=== PATIENT | female | born 1940 | race Caucasian/White ===

== ENCOUNTER 2017-05-29 16:15 | Observation (INO) | payer MEDICARE, OTHER ==
[2017-05-29] MEDS ORDERED: Meclizine 12.5 MG Tab PO ONE ×2 (16:47→17:50)
[2017-05-29] MEDS ORDERED: Ondansetron 4 MG Tab.DIS PO ONE ×2 (16:47→17:54)
--- NOTE | 2017-05-29 16:55 | EDM.PDOC ---
ED HPI GENERAL MEDICAL PROBLEM - General Chief Complaint: Neuro Symptoms/Deficits Stated Complaint: DIZZNESS Time Seen by Provider: 05/29/17 16:40 Source of Information: Reports: Patient History Limitations: Reports: No Limitations - History of Present Illness INITIAL COMMENTS - FREE TEXT/NARRATIVE: 76 yo female was visiting her today in a local [facility] and became abruptly vertiginous. She had nausea without vomiting. No sweating. Is still feeling dizzy now, but not bad as long as she remains still. She denies any numbness or weakness of one side of her body. No slurred speech. Her is in a [facility] due to a stroke and she is afraid of ending up like him. Onset: Today Onset Date: 05/29/17 Onset Time: 16:00 Duration: Minutes:, Waxing/Waning Location: Reports: Head Quality: Reports: Other (spinning) Severity: Mild (now, was worse earlier.) Improves with: Reports: Other (keeping head still) Worsens with: Reports: Movement Context: Reports: Other (Hx of the same requiring hospitalization. ) Associated Symptoms: Reports: Nausea/Vomiting (no vomiting.). Denies: Fever/ Chills, Headaches Treatments BULB SORTER: Reports: Other (see below) (none) - Related Data Allergies Allergy/AdvReac Type Severity Reaction Status Date / Time propoxyphene HCl AdvReac Mild Nausea Verified 05/29/17 17:12 [From Gamaliel] Home Meds: Home Meds Acetaminophen [Acetaminophen Extra Strength] 1,000 mg PO BEDTIME 01/06/13 [ History] Albuterol [Ventolin HFA] 2 puff INH Q4H PRN 01/06/13 [History] Calcium Carbonate/Vitamin D3 [Calcium 600 + Vit D Tablet] 1 each PO DAILY [History] Carvedilol [Coreg] 6.25 mg PO BID 01/06/13 [History] Cholecalciferol (Vitamin D3) [Vitamin D3] 1,000 units PO DAILY 01/06/13 [History ] Citalopram Hydrobromide [Celexa] 20 mg PO DAILY 01/06/13 [History] Multivitamin [Daily Vitamin] 1 each PO DAILY 01/06/13 [History] Simvastatin [Zocor] 40 mg PO BEDTIME 01/06/13 [History] Symbicort 2 puff INH BID 01/06/13 [History] Losartan/Hydrochlorothiazide [Hyzaar 100-12.5 Tablet] 1 each PO DAILY #90 tablet 01/17/13 [Rx] Phenazopyridine HCl [Pyridium] 200 mg PO TID #9 tablet 03/04/16 [Rx] Meclizine [Antivert] 12.5 - 25 mg PO TID PRN #30 tab 05/29/17 [Rx] Ondansetron [Zofran ODT] 4 mg PO Q6H PRN #7 tab.dis 05/29/17 [Rx] Social & Family History - Tobacco Use Smoking Status *Q: Never Smoker Years of Tobacco use: 10 Used Tobacco, but Quit: Yes Month Tobacco Last Used: 1978 Second Hand Smoke Exposure: No - Caffeine Use Caffeine Use: Reports: Coffee - Alcohol Use Days Per Week of Alcohol Use: 0 - Recreational Drug Use Recreational Drug Use: No ED ROS GENERAL - Review of Systems Review Of Systems: See Below Constitutional: Reports: No Symptoms HEENT: Reports: No Symptoms Respiratory: Reports: No Symptoms Cardiovascular: Reports: No Symptoms Endocrine: Reports: No Symptoms GI/Abdominal: Reports: Nausea. Denies: Anorexia, Black Stool, Bloody Stool, Constipation, Diarrhea, Hematemesis, Hematochezia, Vomiting : Reports: No Symptoms Musculoskeletal: Reports: No Symptoms Skin: Reports: No Symptoms Neurological: Reports: Dizziness, Difficulty Walking, Gait Disturbance Psychiatric: Reports: No Symptoms ED EXAM, DIZZINESS - Physical Exam Exam: See Below Exam Limited By: No Limitations General Appearance: Alert, WD/WN, No Apparent Distress Eye Exam: Bilateral Eye: EOMI (No visible nystagmus at this time.), Normal Inspection, PERRL Nystagmus: No: worsens with head to L, worsens with head to R, constant Ears: Normal External Exam, Normal Canal, Hearing Grossly Normal, Normal TMs Nose: Normal Inspection, Normal Mucosa, No Blood Throat/Mouth: Normal Inspection, Normal Lips, Normal Oropharynx, Normal Voice, No Airway Compromise Head Exam: Atraumatic, Normocephalic Neck: Normal Inspection, Supple, Non-Tender Respiratory/Chest: No Respiratory Distress, Lungs Clear, Normal Breath Sounds, No Accessory Muscle Use Cardiovascular: Regular Rate, Rhythm, No Edema GI/Abdominal: Normal Bowel Sounds, Soft, Non-Tender, No Distention Neurological: Alert, Normal Mood/Affect, CN II-XII Intact, No Motor/Sensory Deficits, Oriented x 3. No: Abnormal Light Touch Back Exam: Normal Inspection Extremities: Normal Inspection, Normal Range of Motion, Non-Tender, No Pedal Edema Psychiatric: Normal Affect, Normal Mood Skin Exam: Warm, Dry, Intact, Normal Color, No Rash Course - Vital Signs Text/Narrative:: Feeling better after Zofran and Meclizine. Able to walk the ER halls without sx' s. Last Recorded V/S: Last Vital Signs Temp 36.4 C 05/29/17 17:14 Pulse 69 05/29/17 17:14 Resp 16 05/29/17 17:14 BP 165/83 H 05/29/17 17:14 Pulse Ox 95 05/29/17 17:14 - Orders/Labs/Meds Labs: Laboratory Tests 05/29/17 Range/Units 17:07 Sodium 141 (135-145) mmol/L Potassium 4.1 (3.5-5.3) mmol/L Chloride 103 (100-110) mmol/L Carbon Dioxide 31 (21-32) mmol/L BUN 22 H (7-18) mg/dL Creatinine 1.0 (0.55-1.02) mg/dL Est Cr Clr Drug Dosing TNP Estimated GFR (MDRD) 54 L (>60) BUN/Creatinine Ratio 22.0 H (9-20) Glucose 114 (80-116) mg/dL Calcium 9.4 (8.6-10.2) mg/dL Meds: Medications Discontinued Medications Generic Name Dose Route Start Last Admin Trade Name Eribertoq PRN Reason Stop Dose Admin Aspirin 324 mg 05/29/17 17:04 05/29/17 17:07 Aspirin PO 05/29/17 17:05 324 mg ONETIME ONE Administration Meclizine HCl 12.5 mg 05/29/17 16:47 05/29/17 17:04 Antivert PO 05/29/17 16:48 12.5 mg ONETIME ONE Administration Ondansetron HCl 4 mg 05/29/17 16:47 05/29/17 16:56 Zofran Odt PO 05/29/17 16:48 4 mg ONETIME ONE Administration Departure - Departure Time of Disposition: 17:46 Disposition: Home, Self-Care 01 Condition: Good Clinical Impression: BPV (benign positional vertigo) Qualifiers: Laterality: unspecified laterality Qualified Code(s): H81.10 - Benign paroxysmal vertigo, unspecified ear HTN (hypertension) Qualifiers: Hypertension type: unspecified Qualified Code(s): I10 - Essential (primary) hypertension - Discharge Information Prescriptions: Meclizine [Antivert] 12.5 - 25 mg PO TID PRN #30 tab PRN Reason: Dizziness Ondansetron [Zofran ODT] 4 mg PO Q6H PRN #7 tab.dis PRN Reason: Nausea Referrals: Ag Garsia MD [Primary Care Provider] - Forms: ED Department Discharge Additional Instructions: Take meclizine as directed for vertigo symptoms. Take Zofran ODT as directed for nausea control. Recheck as needed.
[2017-05-29] MEDS ORDERED: Aspirin 81 MG Tab.Chew PO ONE (17:04)
[2017-05-29] MEDS ORDERED: Meclizine 25 MG Tab PO ONE (17:59)
[2017-05-29] MEDS ORDERED: Albuterol 8 GM Inhaler INH PRN (18:05)
[2017-05-29] MEDS: Lactated Ringers 1,000 ML IV SCH (19:39)
[2017-05-29] MEDS: Promethazine 6.25 MG in Sodium Chloride 0.9% 50 ML IV PRN (19:44)
[2017-05-29] MEDS ORDERED: Acetaminophen 500 MG Tab PO SCH (21:00)
[2017-05-29] MEDS: CARVEDILOL 6.25 MG PO SCH (21:59)
[2017-05-29] MEDS: SYMBICORT INH SCH (22:03)
[2017-05-30] MEDS: Lactated Ringers 1,000 ML IV SCH ×2 (05:50→16:09)
[2017-05-30] MEDS: Promethazine 6.25 MG in Sodium Chloride 0.9% 50 ML IV PRN (05:54)
[2017-05-30] MEDS: SYMBICORT INH SCH ×2 (06:53→20:38)
[2017-05-30] MEDS ORDERED: LOSARTAN PO SCH (09:00)
[2017-05-30] MEDS ORDERED: HYDROCHLOROTHIAZIDE PO SCH (09:00)
[2017-05-30] MEDS: CARVEDILOL 6.25 MG PO SCH ×2 (10:07→20:39)
[2017-05-30] MEDS: Citalopram 20 MG Tab *PTOM PO SCH (10:07)
[2017-05-30] MEDS: HYDROCHLOROTHIAZIDE PO SCH (10:07)
[2017-05-30] MEDS: LOSARTAN PO SCH (10:07)
--- NOTE | 2017-05-30 11:51 | PCM.HP ---
H&P History of Present Illness - General Date of Service: 05/30/17 Admit Problem/Dx: Admission Diagnosis/Problem Admission Diagnosis/Problem Dizziness - History of Present Illness Initial Comments - Free Text/Narative: Patient is a pleasant 76-year-old female who had sudden onset of dizziness described as "room was spinning ". She was at work at the home when she was about to leave for the day. She sat down close her eyes but did not resolve. She also had nausea. 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 Therefore occurs at work brought her to the hospital. On presentation she continue to have vertiginous symptoms that resolved with meclizine. She had nausea and about of vomiting as well while in the ER. She did feel better and was able to ambulate, but because of the continued nausea she was admitted overnight for observation. Tells me she had this about 13 years ago and was on meclizine at that time as well. Son has as well which he discovered after having gone to a 3D movie. Has not been undergoing any physical therapy or occupational therapy such as Diogenes- Hallpike maneuvers. No history of inner ear surgery. She's had no prior strokes , TIAs, cardiovascular surgery or new diagnoses. She's not had fevers or chills no sweats or vomiting prior to this. She denies any conjunctivitis change in her vision other than the above. She has not had any recent change in prescription glasses. She denies any Apollo neck shoulder back pain. No chest pain or pressure. Denies palpitations. Denies worsening of symptoms with sitting or standing. Denies any decreased in oral intake or urine output. Denies any diarrhea abdominal pain hematuria or dysuria. Denies any flank pain. Denies any sudden onset of peripheral edema. No sudden onset of joint swelling tenderness or warmth. Denies any rash. Denies any confusion memory deficit speech deficit difficulty chewing or swallowing. Independent of all ADLs. No recent hospitalizations, no contacts, immunizations, travel outside the [place], prolonged road trip, new medication prescriptions or OTC. Denies any epistaxis, tinnitus, otalgia, coordination deficit, unusual bruising, vaginal bleeding, melena or hematochezia. - Related Data Allergies/Adverse Reactions: Allergies Allergy/AdvReac Type Severity Reaction Status Date / Time propoxyphene HCl AdvReac Mild Nausea Verified 05/29/17 18:09 [From Darvon] Home Medications: Home Meds Albuterol [Ventolin HFA] 2 puff INH Q4H PRN 01/06/13 [History] Calcium Carbonate/Vitamin D3 [Calcium 600 + Vit D Tablet] 1 each PO BID [History] Carvedilol [Coreg] 6.25 mg PO BID 01/06/13 [History] Cholecalciferol (Vitamin D3) [Vitamin D3] 1,000 units PO DAILY 01/06/13 [History ] Citalopram Hydrobromide [Celexa] 20 mg PO DAILY 01/06/13 [History] Multivitamin [Daily Vitamin] 1 each PO DAILY 01/06/13 [History] Simvastatin [Zocor] 40 mg PO BEDTIME 01/06/13 [History] Meclizine [Antivert] 12.5 - 25 mg PO TID PRN #30 tab 05/29/17 [Rx] Ondansetron [Zofran ODT] 4 mg PO Q6H PRN #7 tab.dis 05/29/17 [Rx] Acetaminophen [Tylenol Arthritis] 1,300 mg PO BEDTIME 05/30/17 [History] Aspirin [Halfprin] 81 mg PO BEDTIME 05/30/17 [History] Budesonide/Formoterol [Symbicort 160-4.5 MCG] 2 puff IH BID 05/30/17 [History] Furosemide 40 mg PO Q48H 05/30/17 [History] Losartan/Hydrochlorothiazide [Losartan-HCTZ 50-12.5 MG] 0.5 tab PO DAILY [History] Potassium Chloride 20 meq PO Q48H 05/30/17 [History] Tolterodine Tartrate [Detrol LA] 4 mg PO DAILY 05/30/17 [History] Past Medical History HEENT History: Reports: Impaired Vision. Denies: Epistaxis Other HEENT History: wears glasses Cardiovascular History: Reports: High Cholesterol, Hypertension, Other (See Below) Other Cardiovascular History: heart block Respiratory History: Reports: Asthma Gastrointestinal History: Reports: Cholelithiasis [employer] History: Reports: Neurological History: Reports: Vertigo. Denies: CVA, Headaches, Chronic, Head Trauma, TIA Psychiatric History: Reports: None Endocrine/Metabolic History: Reports: Obesity/BMI 30+ Hematologic History: Reports: Anemia Dermatologic History: Denies: Eczema, Urticaria, Venous Stasis Dermatitis - Infectious Disease History Infectious Disease History: Reports: Chicken Pox - Past Surgical History GI Surgical History: Reports: Cholecystectomy, Colonoscopy Female Surgical History: Reports: Hysterectomy, Salpingo-Oophorectomy Social & Family History - Family History Family Medical History: Unobtainable - Tobacco Use Smoking Status *Q: Former Smoker Years of Tobacco use: 10 Used Tobacco, but Quit: Yes Month Tobacco Last Used: unknown Second Hand Smoke Exposure: No - Caffeine Use Caffeine Use: Reports: Coffee Caffeine Use Comment: 2 cups a day - Alcohol Use Days Per Week of Alcohol Use: 0 - Recreational Drug Use Recreational Drug Use: No - Living Situation & Occupation Living situation: Reports: Occupation: Employed H&P Review of Systems - Review of Systems: Review Of Systems: ROS reveals no pertinent complaints other than HPI. Exam - Exam Exam: See Below - Vital Signs Vital Signs: Last Vital Signs Temp 97.5 F 05/30/17 04:00 Pulse 65 05/30/17 08:00 Resp 18 05/30/17 08:00 BP 121/58 L 05/30/17 08:00 Pulse Ox 95 05/30/17 08:00 Weight: 96.797 kg - Exam General: Alert, Oriented, Cooperative. No: Mild Distress, Lethargic HEENT: PERRLA, Conjunctiva Clear, EOMI, Hearing Intact, Mucosa Moist & [place], Nares Patent, Posterior Pharynx Clear, TMs Clear, Glasses, Other (Patient slightly symptomatic with vertiginous symptoms and mild horizontal nystagmus when rotating the head to the left on Diogenes-Hallpike. Not to the right.). No: Scleral Icterus Neck: Supple, Trachea Midline, +2 Carotid Pulse wo Bruit. No: Lymphadenopathy, Carotid Bruit, JVD, Thyromegaly Lungs: Clear to Auscultation, Normal Respiratory Effort Cardiovascular: Regular Rate, Regular Rhythm, Normal S1, Normal S2. No: Gallop/ S3, Gallop/S4 GI/Abdominal Exam: Normal Bowel Sounds, Soft, Non-Tender Back Exam: Normal Inspection, Full Range of Motion. No: Paraspinal Tenderness, Vertebral Tenderness Extremities: Normal Inspection. No: Pedal Edema Skin: Warm. No: Rash, Ecchymosis Neurological: Cranial Nerves Intact, Strength Equal Bilateral (Right-handed), Normal Speech, Normal Tone, Sensation Intact. No: Focal Deficit Neuro Extensive - Mental Status: Oriented x3, Normal Cognition Psychiatric: Normal Affect, Normal Mood. No: Anxious, Depressed - Patient Data Lab Results Last 24 hrs: Laboratory Tests 05/29/17 05/29/17 05/29/17 Range/Units 17:07 17:07 22:24 WBC 8.4 (4.5-12.0) X10-3/uL RBC 4.97 (3.23-5.20) x10(6)uL Hgb 14.4 D (11.5-15.5) g/dL Hct 43.4 D (30.0-51.3) % MCV 87.4 (80-96) fL MCH 29.1 (27.7-33.6) pg MCHC 33.2 (32.2-35.4) g/dL RDW 13.6 (11.5-15.5) % Plt Count 235 (125-369) X10(3)uL MPV 7.7 (7.4-10.4) fL Neut % (Auto) 66.0 (46-82) % Lymph % (Auto) 24.0 (13-37) % [place] % (Auto) 7.5 (4-12) % Eos % (Auto) 2 (1.0-5.0) % Baso % (Auto) 0 (0-2) % Neut # (Auto) 5.6 (1.6-8.3) # Lymph # (Auto) 2.0 (0.6-5.0) # [place] # (Auto) 0.6 (0.0-1.3) # Eos # (Auto) 0.2 (0.0-0.8) # Baso # (Auto) 0.0 (0.0-0.2) # Sodium 141 (135-145) mmol/L Potassium 4.1 (3.5-5.3) mmol/L Chloride 103 (100-110) mmol/L Carbon Dioxide 31 (21-32) mmol/L BUN 22 H (7-18) mg/dL Creatinine 1.0 (0.55-1.02) mg/dL Est Cr Clr Drug Dosing TNP Estimated GFR (MDRD) 54 L (>60) BUN/Creatinine Ratio 22.0 H (9-20) Glucose 114 (80-116) mg/dL Calcium 9.4 (8.6-10.2) mg/dL Urine Color Yellow (YELLOW) Urine Appearance Cloudy (CLEAR) Urine pH 8.0 H (5.0-6.5) Ur Specific [place] 1.015 (1.010-1.025) Urine Protein Negative (NEGATIVE) mg/dL Urine Glucose (UA) Normal (NEGATIVE) mg/dL Urine Ketones 15 H (NEGATIVE) mg/dL Urine Occult Blood Negative (NEGATIVE) Urine Nitrite Negative (NEGATIVE) Urine Bilirubin Negative (NEGATIVE) Urine Urobilinogen Normal (NEGATIVE) mg/dL Ur Leukocyte Esterase Negative (NEGATIVE) Result Diagrams: 05/29/17 17:07 05/29/17 17:07 *Q Meaningful Use (ADM) - VTE *Q VTE Criteria *Q: - Stroke *Q Stroke Criteria *Q: - AMI *Q AMI Criteria *Q: - Problem List (1) BPV (benign positional vertigo) SNOMED Code(s): 614098647 ICD Code: H81.10 - BENIGN PAROXYSMAL VERTIGO, UNSPECIFIED EAR Status: Acute Current Visit: Yes Qualifiers: Laterality: left Qualified Code(s): H81.12 - Benign paroxysmal vertigo, left ear (2) HTN (hypertension) SNOMED Code(s): 00987061 ICD Code: I10 - ESSENTIAL (PRIMARY) HYPERTENSION Status: Chronic Current Visit: Yes Qualifiers: Hypertension type: essential hypertension Qualified Code(s): I10 - Essential (primary) hypertension (3) Full code status SNOMED Code(s): 787088569 ICD Code: Z78.9 - OTHER SPECIFIED HEALTH STATUS Status: Acute Current Visit: Yes Problem List Initiated/Reviewed/Updated: Yes Orders Last 24hrs: Active Orders 24 hr Category Date Time Status Acetaminophen [Tylenol Arthritis Pain] Med 05/30/17 21:00 Ordered 1,300 mg PO BEDTIME Acetaminophen [Tylenol Extra Strength] Med 05/29/17 21:00 Pending 1,000 mg PO BEDTIME Albuterol [Ventolin HFA] Med 05/29/17 18:05 Active 0 gm INH Q4H PRN Aspirin [Halfprin] Med 05/30/17 21:00 Ordered 81 mg PO BEDTIME Budesonide/Formoterol [Symbicort 160-4.5 MCG] Med 05/30/17 21:00 Ordered 2 puff IH BID Carvedilol [Coreg] Med 05/29/17 21:45 Active 6.25 mg PO BID Citalopram [Celexa] Med 05/30/17 09:00 Active 20 mg PO DAILY Furosemide [Furosemide] Med 05/30/17 10:45 Ordered 40 mg PO Q48H Hydrochlorothiazide/Losartan [Hyzaar 100-12.5 MG] Med 05/30/17 10:00 Active 0.5 tab PO DAILY Losartan/Hydrochlorothiazide [Losartan-HCTZ 50-12.5 MG] Med 05/31/17 09:00 Ordered 0.5 tab PO DAILY Patient's Own Medication [Ptom] Med 05/29/17 21:45 Active 0 each INH BIDRT Potassium Chloride [Potassium Chloride] Med 05/30/17 10:45 Ordered 20 meq PO Q48H Tolterodine Tartrate [Detrol LA] Med 05/30/17 10:45 Ordered 4 mg PO DAILY Medication Orders Acetaminophen (Tylenol Extra Strength) 1,000 mg PO BEDTIME [facility] Acetaminophen (Tylenol Arthritis Pain) 1,300 mg PO BEDTIME YANELY Albuterol (Ventolin Hfa) 0 gm INH Q4H PRN PRN Reason: Dyspnea Aspirin (Halfprin) 81 mg PO BEDTIME [facility] Carvedilol (Coreg) 6.25 mg PO BID [facility] Last Admin: 05/30/17 10:07 Dose: 6.25 mg Admin: 05/29/17 21:59 Dose: 6.25 mg Citalopram Hydrobromide (Celexa) 20 mg PO DAILY [facility] Last Admin: 05/30/17 10:07 Dose: 20 mg HCTZ/Losartan Potassium (Hyzaar 100-12.5 Mg) 0.5 tab PO DAILY [facility] Last Admin: 05/30/17 10:07 Dose: 0.5 tab Lactated Ringer's (Ringers, Lactated) 1,000 mls @ 100 mls/hr IV ASDIRECTED [facility] Last Admin: 05/30/17 05:50 Dose: 100 mls/hr Infusion: 05/30/17 05:39 Dose: 100 mls/hr Admin: 05/29/17 19:39 Dose: 100 mls/hr Promethazine HCl 6.25 mg/ (Sodium Chloride) 50.25 mls @ 200 mls/hr IV Q6H PRN PRN Reason: Nausea/Vomiting Last Admin: 05/30/17 05:54 Dose: 200 mls/hr Admin: 05/29/17 19:44 Dose: 200 mls/hr Non-Formulary Medication (Budesonide/Formoterol [Symbicort 160-4.5 Mcg]) 2 puff IH BID YANELY Non-Formulary Medication (Furosemide [Furosemide]) 40 mg PO Q48H YANELY Non-Formulary Medication (Losartan/Hydrochlorothiazide [Losartan-Hctz 50-12.5 Mg ]) 0.5 tab PO DAILY YANELY Non-Formulary Medication (Potassium Chloride [Potassium Chloride]) 20 meq PO Q48H YANELY Non-Formulary Medication (Tolterodine Tartrate [Detrol La]) 4 mg PO DAILY YANELY Symbicort 160/4.5 * (Pt Own Med*) 0 each INH BIDRT YANELY Last Admin: 05/30/17 06:53 Dose: 2 each Admin: 05/29/17 22:03 Dose: 2 each Assessment/Plan Comment:: She will continue hydration. Will advance her diet as tolerated. Continue home medications. Continue meclizine intermittently. Get her up and moving around. Assess for any resumption of symptoms. Orthostatics. If persist will follow with CT head. Otherwise will recommend outpatient PT OT for BPPV. All questions answered and she decreased about plan of care. Thorough discussion was had regarding her CODE STATUS should her respiratory function fail and she would require intubation which she states that she would, also should her heart fail going to arrest which she would require cardiac chest compressions and resuscitation, she indicates that she would. Therefore she will be full CODE STATUS was noted in the chart. All questions were answered with her at the bedside. Anticipate stay 24 hours with discharge to home.
[2017-05-30] MEDS: Tolterodine 4 MG Cap.ER *PTOM PO SCH (13:31)
[2017-05-30] MEDS ORDERED: Non-Formulary Medication 1 Each (Budesonide/Formoterol [Symbicort 160-4.5 Mcg] 2 PUFF) IH SCH (21:00)
[2017-05-30] MEDS ORDERED: Acetaminophen 650 MG Tab.ER *PTOM PO SCH (21:00)
[2017-05-30] MEDS ORDERED: Aspirin 81 MG Tab.EC *PTOM PO SCH (21:00)
[2017-05-31] MEDS: Lactated Ringers 1,000 ML IV SCH (02:05)
[2017-05-31] MEDS: SYMBICORT INH SCH (08:26)
[2017-05-31] MEDS: LOSARTAN PO SCH (08:27)
[2017-05-31] MEDS: HYDROCHLOROTHIAZIDE PO SCH (08:27)
[2017-05-31] MEDS: CARVEDILOL 6.25 MG PO SCH (08:28)
[2017-05-31] MEDS: Citalopram 20 MG Tab *PTOM PO SCH (08:28)
[2017-05-31] MEDS: Tolterodine 4 MG Cap.ER *PTOM PO SCH (08:29)
[2017-05-31] MEDS ORDERED: Potassium Chloride 20 MEQ Tab.ER *PTOM PO SCH (09:00)
[2017-05-31] MEDS ORDERED: HYDROCHLOROTHIAZIDE PO SCH (09:00)
[2017-05-31] MEDS ORDERED: Furosemide 40 MG Tab *PTOM PO SCH (09:00)
[2017-05-31] MEDS ORDERED: LOSARTAN PO SCH (09:00)
[2017-05-31] MEDS ORDERED: [UNRECOGNIZED DRUG - OTHER] PO SCH (09:00)
--- NOTE | 2017-05-31 11:30 | PCM.DCSUM1 ---
Discharge Summary - Hospital Course HPI Initial Comments: 76 y f admitted for observation after having a bout of vertigo. hasnt had recurrent in 13y. discribed as 'room spinning' when she turns her head to the left. better with lying down, head straight and eyes closed. she was treated in the ER and felt better and was about to be discharged when she had a large emesis and decision was made to keep overnight since she drives and to monitor for any other s/s. She is independent of ADLs and drives. 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 this event occurred while she was about to leave from work for the day. Denied any precipitating factors prior to event. - Discharge Data Discharge Date: 05/31/17 Discharge Disposition: Home, Self-Care 01 Condition: Good - Discharge Diagnosis/Problem(s) (1) BPV (benign positional vertigo) SNOMED Code(s): 373024854 ICD Code: H81.10 - BENIGN PAROXYSMAL VERTIGO, UNSPECIFIED EAR Status: Acute Qualifiers: Laterality: left Qualified Code(s): H81.12 - Benign paroxysmal vertigo, left ear (2) HTN (hypertension) SNOMED Code(s): 89071661 ICD Code: I10 - ESSENTIAL (PRIMARY) HYPERTENSION Status: Chronic Qualifiers: Hypertension type: essential hypertension Qualified Code(s): I10 - Essential (primary) hypertension (3) Full code status SNOMED Code(s): 715118627 ICD Code: Z78.9 - OTHER SPECIFIED HEALTH STATUS Status: Suspected - Patient Summary/Data Hospital Course: admitted overnight. vitals and orthostatics with i/o monitored without events. she tolerated antiemetic and was eating and drinking during the evening and the morning prior to discharge. she was up and about the halls per her own strength and denied any recurrence of symptoms. there was no repeat vomiting, headaches, vision chgs, changes in neurological/psychological status during stay. Labs and medications reviewed with her and she deemed she felt back to normal and wished to go home, which I also on examination and review of course agreed was appropriate with instructions regarding BPPV, treatment with oral medications and maneuvers. handouts were provided including home exercises that may help to prevent. Her son has the same and he uses the exercises as well and talking with him on the phone, he tells me he will be able to demonstrate these to his mother outpt. She will continue to follow up with her outpt PCP per regularly scheduled appts and follow up. should concerns arise or should she experience repeat episode that is not amenable to the above treatment modalities she is to present to the ER for further evaluation and management. She agrees to assessments, care and recommendations. - Patient Instructions Driving: May Drive Today - Discharge Plan Prescriptions/Med Rec: Meclizine [Antivert] 12.5 - 25 mg PO TID PRN #30 tab PRN Reason: Dizziness Ondansetron [Zofran ODT] 4 mg PO Q6H PRN #7 tab.dis PRN Reason: Nausea Home Medications: Home Meds Albuterol [Ventolin HFA] 2 puff INH Q4H PRN 01/06/13 [History] Calcium Carbonate/Vitamin D3 [Calcium 600 + Vit D Tablet] 1 each PO BID [History] Carvedilol [Coreg] 6.25 mg PO BID 01/06/13 [History] Cholecalciferol (Vitamin D3) [Vitamin D3] 1,000 units PO DAILY 01/06/13 [History ] Citalopram Hydrobromide [Celexa] 20 mg PO DAILY 01/06/13 [History] Multivitamin [Daily Vitamin] 1 each PO DAILY 01/06/13 [History] Simvastatin [Zocor] 40 mg PO BEDTIME 01/06/13 [History] Meclizine [Antivert] 12.5 - 25 mg PO TID PRN #30 tab 05/29/17 [Rx] Ondansetron [Zofran ODT] 4 mg PO Q6H PRN #7 tab.dis 05/29/17 [Rx] Acetaminophen [Tylenol Arthritis] 1,300 mg PO BEDTIME 05/30/17 [History] Aspirin [Halfprin] 81 mg PO BEDTIME 05/30/17 [History] Budesonide/Formoterol [Symbicort 160-4.5 MCG] 2 puff IH BID 05/30/17 [History] Furosemide 40 mg PO Q48H 05/30/17 [History] Losartan/Hydrochlorothiazide [Losartan-HCTZ 50-12.5 MG] 0.5 tab PO DAILY [History] Potassium Chloride 20 meq PO Q48H 05/30/17 [History] Tolterodine Tartrate [Detrol LA] 4 mg PO DAILY 05/30/17 [History] Patient Handouts: Vertigo, [id number], Dizziness, [id number], Fall Prevention in Hospitals, Adult, Deep Vein Thrombosis Referrals: Ag Garsia MD [Primary Care Provider] - - Discharge Summary/Plan Comment DC Time >30 min.: Yes Discharge Summary/Plan Comment: okay to d/c to home with instructions how to use her meclizine and antiemetic if needed. - General Info Date of Service: 05/31/17 Subjective Update: Feels much better, had dinner and breakfast and denies repeat vertigo. no lin, vision chg, sinus pressure/pain, otalgia, tinnitis, change in taste, difficulty chewing, swallowing, speech or word finding difficulty, sore throat or neck pain , no swollen glands, cough, wheezing, cp/pressure, palpitations, sob, lightheadedness or weakness on standing and ambulating, denies imbalance or gait disturbance with walking, denies back pain, abd pain, constipation, diarrhea, dysuria, pelvic pain,flank pain, swollen joints or extremities. denies leg, calf or thigh pain, no parasthesias or change in ability to read/ write. She denies feeling anxious, depressed, ambivalent, confused, memory difficulty or change in baseline functional status. feels overall improvement in well being. - Review of Systems Systems Review Comment: please subjective for pertinent positives and negatives relative to todays visit and hospital course. - Patient Data Vitals - Most Recent: Vital Signs (72 hours) 05/30/17 05/30/17 05/30/17 16:00 17:59 18:02 Temperature [ 97.6 F Oral] Pulse, Peripheral Pulse, 62 Peripheral [ Right Pulse Oximetry] Respiratory 16 Rate Blood Pressure Blood Pressure 142/60 H [Right Upper Arm] O2 Sat by Pulse 95 92 L Oximetry O2 Sat by Pulse 92 L Oximetry [Room Air] 05/30/17 05/30/17 05/30/17 20:00 20:39 23:30 Temperature [ 98.1 F 97.8 F Oral] Pulse, 70 Peripheral Pulse, 70 69 Peripheral [ Right Pulse Oximetry] Respiratory 16 16 Rate Blood Pressure 119/71 Blood Pressure 119/71 120/51 L [Right Upper Arm] O2 Sat by Pulse 94 L 94 L Oximetry O2 Sat by Pulse Oximetry [Room Air] 05/31/17 05/31/17 05:15 08:00 Temperature [ 97.7 F 98 F Oral] Pulse, Peripheral Pulse, 61 80 Peripheral [ Right Pulse Oximetry] Respiratory 16 18 Rate Blood Pressure Blood Pressure 131/59 L 133/89 [Right Upper Arm] O2 Sat by Pulse 95 100 Oximetry O2 Sat by Pulse Oximetry [Room Air] Weight - Most Recent: 96.797 kg I&O - Last 24 hours: Intake & Output 05/30/17 05/31/17 05/31/17 22:59 06:59 14:59 Intake Total 825 837 250 Output Total 800 750 400 Balance 25 87 -150 Lab Results - Last 24 hrs: Laboratory Tests 05/29/17 05/29/17 05/29/17 Range/Units 17:07 17:07 22:24 WBC 8.4 (4.5-12.0) X10-3/uL RBC 4.97 (3.23-5.20) x10(6)uL Hgb 14.4 D (11.5-15.5) g/dL Hct 43.4 D (30.0-51.3) % MCV 87.4 (80-96) fL MCH 29.1 (27.7-33.6) pg MCHC 33.2 (32.2-35.4) g/dL RDW 13.6 (11.5-15.5) % Plt Count 235 (125-369) X10(3)uL MPV 7.7 (7.4-10.4) fL Neut % (Auto) 66.0 (46-82) % Lymph % (Auto) 24.0 (13-37) % Parker % (Auto) 7.5 (4-12) % Eos % (Auto) 2 (1.0-5.0) % Baso % (Auto) 0 (0-2) % Neut # (Auto) 5.6 (1.6-8.3) # Lymph # (Auto) 2.0 (0.6-5.0) # Parker # (Auto) 0.6 (0.0-1.3) # Eos # (Auto) 0.2 (0.0-0.8) # Baso # (Auto) 0.0 (0.0-0.2) # Sodium 141 (135-145) mmol/L Potassium 4.1 (3.5-5.3) mmol/L Chloride 103 (100-110) mmol/L Carbon Dioxide 31 (21-32) mmol/L BUN 22 H (7-18) mg/dL Creatinine 1.0 (0.55-1.02) mg/dL Est Cr Clr Drug Dosing TNP Estimated GFR (MDRD) 54 L (>60) BUN/Creatinine Ratio 22.0 H (9-20) Glucose 114 (80-116) mg/dL Calcium 9.4 (8.6-10.2) mg/dL Urine Color Yellow (YELLOW) Urine Appearance Cloudy (CLEAR) Urine pH 8.0 H (5.0-6.5) Ur Specific [place] 1.015 (1.010-1.025) Urine Protein Negative (NEGATIVE) mg/dL Urine Glucose (UA) Normal (NEGATIVE) mg/dL Urine Ketones 15 H (NEGATIVE) mg/dL Urine Occult Blood Negative (NEGATIVE) Urine Nitrite Negative (NEGATIVE) Urine Bilirubin Negative (NEGATIVE) Urine Urobilinogen Normal (NEGATIVE) mg/dL Ur Leukocyte Esterase Negative (NEGATIVE) Med Orders - Current: Current Medications Acetaminophen (Tylenol Arthritis Pain) 1,300 mg PO BEDTIME [facility] Last Admin: 05/30/17 20:39 Dose: 1,300 mg Albuterol (Ventolin Hfa) 0 gm INH Q4H PRN PRN Reason: Dyspnea Aspirin (Halfprin) 81 mg PO BEDTIME [facility] Last Admin: 05/30/17 20:40 Dose: 81 mg Carvedilol (Coreg) 6.25 mg PO BID [facility] Last Admin: 05/31/17 08:28 Dose: 6.25 mg Citalopram Hydrobromide (Celexa) 20 mg PO DAILY [facility] Last Admin: 05/31/17 08:28 Dose: 20 mg Furosemide (Lasix) 40 mg PO Q48H [facility] Last Admin: 05/31/17 08:28 Dose: 40 mg HCTZ/Losartan Potassium (Hyzaar 100-12.5 Mg) 0.5 tab PO DAILY [facility] Last Admin: 05/31/17 08:27 Dose: 0.5 tab Promethazine HCl 6.25 mg/ (Sodium Chloride) 50.25 mls @ 200 mls/hr IV Q6H PRN PRN Reason: Nausea/Vomiting Last Admin: 05/30/17 05:54 Dose: 200 mls/hr Symbicort 160/4.5 * (Pt Own Med*) 0 each INH BIDRT [facility] Last Admin: 05/31/17 08:26 Dose: 1 each Potassium Chloride (Klor-Con M20) 20 meq PO Q48H [facility] Last Admin: 05/31/17 08:27 Dose: 20 meq Tolterodine Tartrate (Detrol La 24 Hr) 4 mg PO DAILY [facility] Last Admin: 05/31/17 08:29 Dose: 4 mg Discontinued Medications Aspirin (Aspirin) 324 mg PO ONETIME ONE Stop: 05/29/17 17:05 Last Admin: 05/29/17 17:07 Dose: 324 mg Lactated Ringer's (Ringers, Lactated) 1,000 mls @ 100 mls/hr IV ASDIRECTED [facility] Last Admin: 05/31/17 02:05 Dose: 100 mls/hr Meclizine HCl (Antivert) 12.5 mg PO ONETIME ONE Stop: 05/29/17 16:48 Last Admin: 05/29/17 17:04 Dose: 12.5 mg Meclizine HCl (Antivert) 12.5 mg PO ONETIME ONE Stop: 05/29/17 17:51 Last Admin: 05/29/17 18:01 Dose: Not Given Meclizine HCl (Antivert) 12.5 mg PO ONETIME ONE Stop: 05/29/17 18:00 Last Admin: 05/29/17 21:21 Dose: 12.5 mg Ondansetron HCl (Zofran Odt) 4 mg PO ONETIME ONE Stop: 05/29/17 16:48 Last Admin: 05/29/17 16:56 Dose: 4 mg Ondansetron HCl (Zofran Odt) 4 mg PO ONETIME ONE Stop: 05/29/17 17:55 Last Admin: 05/29/17 18:17 Dose: 4 mg - Exam General: Reports: Alert, Oriented, No Acute Distress. Denies: Lethargic HEENT: Reports: Pupils Equal, Pupils Reactive, EOMI, Mucous Membr. Moist/[place], Other (no nystagmus or ptosis). Denies: Scleral Icterus Neck: Reports: Supple, No JVD, No Thyromegaly, +2 Carotid Pulse wo Bruit. Denies: Lymphadenopathy Lungs: Reports: Clear to Auscultation, Normal Respiratory Effort Cardiovascular: Reports: Regular Rate, Regular Rhythm GI/Abdominal Exam: Normal Bowel Sounds, Soft, Non-Tender Back Exam: Reports: Normal Inspection. Denies: Paraspinal Tenderness, Vertebral Tenderness Extremities: Normal Inspection, Normal Range of Motion, Non-Tender, Normal Capillary Refill. No: Courtney's Sign, Increased Warmth, Mottled, Pallor, Redness Skin: Reports: Warm, Dry, Intact. Denies: Rash Neurological: Reports: No New Focal Deficit, Normal Gait, Normal Speech, Normal Tone, Strength Equal Bilateral, Reflexes Equal Bilateral, Sensation Intact, Cranial Nerves Intact Psy/Mental Status: Reports: Normal Affect, Normal Mood. Denies: Anxious, Depressed, Agitated *Q Meaningful Use (DIS) - VTE *Q VTE Criteria *Q: - Stroke *Q Stroke Criteria *Q: - AMI *Q AMI Criteria *Q:
[2017-05-31 11:41] VITALS: BP 133/89
== END 2017-05-31 13:00 | disposition home or self-care (01) ==
LOC: FB.ED 16:15 → FB.MS 17:59
PROVIDERS: ADMIT Emergency Medicine; ATTEND Family Medicine
DX: H81.12 Benign paroxysmal vertigo, left ear (principal); I10 Essential (primary) hypertension; E78.00 Pure hypercholesterolemia, unspecified; J45.909 Unspecified asthma, uncomplicated; E66.9 Obesity, unspecified; Z68.30 Body mass index [BMI] 30.0-30.9, adult; Z78.9 Other specified health status; Z79.899 Other long term (current) drug therapy; Z79.82 Long term (current) use of aspirin; Z88.6 Allergy status to analgesic agent; Z87.891 Personal history of nicotine dependence
CPT/HCPCS: 36415; 80048; 81003; 85025; 96361; 96365; 96375; 99283; 99285; A9270; G0378; J2550; J7050; J7120

== ENCOUNTER 2019-03-28 12:25 | Inpatient (IN) | payer MEDICARE, OTHER ==
[2019-03-28] MEDS ORDERED: Ondansetron 4 MG Tab.DIS PO PRN (15:48)
[2019-03-28] MEDS ORDERED: Albuterol 8 GM Inhaler INH PRN (15:48)
[2019-03-28] MEDS ORDERED: Meclizine 12.5 MG Tab PO PRN (15:48)
[2019-03-28] MEDS ORDERED: Bisacodyl 10 MG Supp RECTAL PRN (16:40)
[2019-03-28] MEDS: oxyCODONE 5 MG Tab PO PRN (17:34)
[2019-03-28] MEDS: Carvedilol 6.25 MG Tab PO SCH (17:35)
[2019-03-28] MEDS: Pantoprazole 40 MG Tab.CR PO SCH (17:36)
[2019-03-28] MEDS: Gabapentin 400 MG Cap PO SCH ×2 (17:41→20:40)
[2019-03-28] MEDS: Simvastatin 40 MG Tab PO SCH (20:40)
[2019-03-28] MEDS: Formoterol/Mometasone 200-5 MCG 8.8 GM Inhaler IH SCH (20:41)
[2019-03-28] MEDS ORDERED: Aspirin 81 MG Tab.EC PO SCH (21:00)
[2019-03-29] MEDS: Pantoprazole 40 MG Tab.CR PO SCH ×2 (05:44→17:02)
[2019-03-29] MEDS: Carvedilol 6.25 MG Tab PO SCH ×2 (08:53→17:01)
[2019-03-29] MEDS: Gabapentin 400 MG Cap PO SCH ×3 (08:55→21:01)
[2019-03-29] MEDS: oxyCODONE 5 MG Tab PO PRN ×2 (08:55→17:02)
[2019-03-29] MEDS: Ferrous Sulfate 325 MG Tab PO SCH (08:56)
[2019-03-29] MEDS: Citalopram 20 MG Tab PO SCH (08:56)
[2019-03-29] MEDS ORDERED: Tolterodine 4 MG Cap.ER PO SCH (09:00)
[2019-03-29] MEDS: Formoterol/Mometasone 200-5 MCG 8.8 GM Inhaler IH SCH ×2 (09:48→21:01)
[2019-03-29] MEDS: Hydrochlorothiazide/Losartan 12.5-100 mg Tab PO SCH (09:49)
[2019-03-29] MEDS: Lidocaine 5% 700 MG Patch TRDERM SCH (09:50)
[2019-03-29] MEDS: Furosemide 40 MG Tab PO SCH (09:50)
[2019-03-29] MEDS: Acetaminophen 500 MG Tab PO PRN (11:53)
--- NOTE | 2019-03-29 11:57 | HP ---
ADMISSION DATE: 03/28/2019 CHIEF COMPLAINT: Admission to swing bed for rehab for severe back pain with left leg radiculopathy. HISTORY OF PRESENT ILLNESS: Ms. Kern is a 78-year-old woman from [place], [place] with a history of chronic essential hypertension, COPD, hyperlipidemia, and anxiety depression. She was admitted to [facility] on March 18, 2019 with an upper GI bleed. She had upper GI endoscopy with coagulation of her bleeders, and it was felt to be due to a combination of naproxen and recent steroid use for severe back pain. The patient states she has had back pain for about 5 months. She has had to walk with a walker. She denies any injury to her back, but it has never improved. She has had multiple outpatient treatments and on 03/25/2019, she was admitted to the hospital with acute severe back pain with radiation down the left leg. She was treated with analgesics and MRI was done showing severe spinal stenosis. Referral to Neurosurgery was made and at that time, she was considered not to be a good surgical candidate. However, she does have a followup appointment in [address] Rodriguez to reassess that decision. Luz Elena continues to have severe low back pain radiating down the left hamstring and down into the left leg. She has noted a weakness in the left lower extremity since this has been going on as well. She is now admitted to [facility] for therapy, conservative treatment with hope she may improve enough without needing surgery. PAST MEDICAL HISTORY: Hypertension, hyperlipidemia, admission for the GI bleed in March of this year. She also has been on carvedilol for PSVT and has a chronic left bundle branch block on EKG. She has COPD, chronic allergic rhinitis, anxiety and depression. Luz Elena is status post T and A in childhood, right total knee arthroplasty. She had a BRENDA-USO at age 27 and the other ovary taken out in 2004. She is status post appendectomy, bilateral cataract surgeries. She is 5, para 4 with 4 normal deliveries. She has never had transfusions, jaundice, or hepatitis. She has had a negative colonoscopy approximately 11 years ago. MEDICATIONS: 1. Simvastatin 40 mg daily. 2. Potassium 20 mEq every 48 hours. 3. Furosemide 40 mg daily. 4. Carvedilol 6.25 mg b.i.d. 5. Albuterol 2 puffs every 4 hours p.r.n. 6. Multivitamin 1 daily. 7. Vitamin D 1000 International Units daily. 8. Tramadol 25 mg every 6 hours p.r.n. 9. Senna-S 2 b.i.d. 10.Oxycodone 5 mg every 4 hours p.r.n. back pain. 11.Omeprazole 40 mg 2 daily. 12.Nitroglycerin p.r.n. 13.Losartan-hydrochlorothiazide 100/12.5 one-half tab daily. 14.Lidoderm patch topically. 15.Gabapentin 400 mg t.i.d. 16.Flonase 2 sprays each naris daily. 17.Iron sulfate 325 mg daily. 18.Citalopram 40 mg daily. 19.Breo Ellipta 200-25 one puff daily. 20.Dulcolax p.r.n. 21.Tylenol p.r.n. ALLERGIES: Darvocet. HABITS: Nonsmoker for the past 25 years. No alcohol. FAMILY AND SOCIAL HISTORY: The patient was last year. Her has been in the penitentiary for 13 years post dense CVA. She lives by herself in [place]. She has 1 son living in [place], a son in [place], a son in [place], and a daughter in [place]. She has many grandchildren and great grandchildren. REVIEW OF SYSTEMS: GENERAL: No seizure, syncope, or recent significant weight change. SKIN: Negative for rash. HEENT: No recent changes in hearing or vision. She has hearing aids, but does not have it with her. No sore throat or URI. CHEST: No cough or purulent sputum. No chest pain or palpitations. GASTROINTESTINAL: No abdominal pain or nausea. She has had some loose stools and thinks she is getting too much stool softener. EXTREMITIES: No joint inflammation, swelling, or skin rash. She notes she has the back pain, left leg pain, and weakness in the left lower extremity. PHYSICAL EXAMINATION: GENERAL: She is alert, comfortable, and a good historian. VITAL SIGNS: Blood pressure 144/60, pulse 62 and regular, respirations 16, O2 saturation 95% on room air. Height 64 inches, weight 199 pounds. SKIN: Anicteric, warm, dry without rash. HEENT: Shows clear TMs. Pupils are equal and reactive. Oropharynx is clear. NECK: Supple. Thyroid is normal. Carotids are normal in the right. I could not feel a good pulse on the left, but no bruits are heard. LUNGS: Clear to the bases. HEART: Regular. No murmur or gallop heard. ABDOMEN: Normal bowel sounds. Soft, nontender. No masses or organomegaly. EXTREMITIES: Show no edema. Good pulses. NEUROLOGIC: Reveals motor exam to be symmetric; however, she does demonstrate weakness on dorsiflexion of left foot and slight weakness on quads extension at the left knee. Also noted was she appeared to have a slight left facial droop and on further questioning, Luz Elena feels that she might have noticed this in the mirror before she went in the hospital last time. ASSESSMENT: A 78-year-old woman with severe spinal stenosis, left lower extremity radiculopathy, and left L4 nerve root compromise. 1. Recent gastrointestinal bleed secondary to medication. 2. Asthma with chronic obstructive pulmonary disease. 3. History of paroxysmal supraventricular tachycardia, on carvedilol. 4. Chronic lower extremity edema, but with normal ejection fraction on echocardiogram. 5. Chronic essential hypertension. 6. Chronic allergic rhinitis. 7. Hyperlipidemia. 8. Left facial droop. PLAN: I reviewed her CT, her MRI scan of the lumbar spine at [facility], and her CT of the head that was done because of her fall. This showed microvascular changes, but no CVA. Because of her apparent left facial droop and inability to palpate a good left carotid pulse, I will set her up for carotid Doppler study. We will also do physical and occupational therapy as conservative treatment for her radicular pain. She has an appointment with Dr. Rodriguez in 2 weeks for neurosurgical followup. I have also offered her a second opinion here with Dr. Gomez for the back. Followup closely. /[id number] RO/SOFIAL
[2019-03-29] MEDS: fentaNYL 12 MCG/HR Transdermal Patch TRDERM SCH (17:38)
[2019-03-29] MEDS: Simvastatin 40 MG Tab PO SCH (21:00)
[2019-03-29] MEDS ORDERED: Polyvinyl Alcohol 1.4%/Povidone 0.6% Ophth Soln 0.4 ML Box of 30 EYEBOTH PRN ×2 (21:20→21:39)
[2019-03-30] MEDS ORDERED: Hypromellose 0.3% Ophth Soln 15 ML Bottle EYEBOTH PRN (04:05)
[2019-03-30] MEDS: Polyvinyl Alcohol 1.4% Ophth Soln 15 ML Bottle EYEBOTH PRN (05:36)
[2019-03-30] MEDS: Pantoprazole 40 MG Tab.CR PO SCH ×2 (05:37→17:19)
[2019-03-30] MEDS: Gabapentin 400 MG Cap PO SCH ×3 (08:40→20:19)
[2019-03-30] MEDS: oxyCODONE 5 MG Tab PO PRN ×2 (08:40→14:31)
[2019-03-30] MEDS: Carvedilol 6.25 MG Tab PO SCH ×2 (08:42→17:20)
[2019-03-30] MEDS: Furosemide 40 MG Tab PO SCH (08:43)
[2019-03-30] MEDS: Citalopram 20 MG Tab PO SCH (08:43)
[2019-03-30] MEDS: Formoterol/Mometasone 200-5 MCG 8.8 GM Inhaler IH SCH ×2 (08:44→20:19)
[2019-03-30] MEDS: Hydrochlorothiazide/Losartan 12.5-100 mg Tab PO SCH (08:45)
[2019-03-30] MEDS: Ferrous Sulfate 325 MG Tab PO SCH (08:45)
[2019-03-30] MEDS: Lidocaine 5% 700 MG Patch TRDERM SCH (08:45)
[2019-03-30] MEDS: Potassium Chloride 20 MEQ Tab.ER PO SCH (08:45)
[2019-03-30] MEDS: Acetaminophen 500 MG Tab PO PRN ×2 (10:07→18:15)
[2019-03-30] MEDS: Simvastatin 40 MG Tab PO SCH (20:20)
[2019-03-31] MEDS: Pantoprazole 40 MG Tab.CR PO SCH ×2 (05:53→17:20)
[2019-03-31] MEDS: Carvedilol 6.25 MG Tab PO SCH ×2 (08:44→17:20)
[2019-03-31] MEDS: Citalopram 20 MG Tab PO SCH (08:46)
[2019-03-31] MEDS: Formoterol/Mometasone 200-5 MCG 8.8 GM Inhaler IH SCH ×2 (08:47→20:41)
[2019-03-31] MEDS: Ferrous Sulfate 325 MG Tab PO SCH (08:47)
[2019-03-31] MEDS: Furosemide 40 MG Tab PO SCH (08:48)
[2019-03-31] MEDS: Lidocaine 5% 700 MG Patch TRDERM SCH (08:48)
[2019-03-31] MEDS: Hydrochlorothiazide/Losartan 12.5-100 mg Tab PO SCH (08:48)
[2019-03-31] MEDS: Gabapentin 400 MG Cap PO SCH (09:11)
[2019-03-31] MEDS: oxyCODONE 5 MG Tab PO PRN ×3 (09:49→20:51)
[2019-03-31] MEDS: Acetaminophen 500 MG Tab PO PRN ×2 (13:17→19:13)
[2019-03-31] MEDS: Gabapentin 600 MG Tab PO SCH ×2 (14:28→20:40)
--- NOTE | 2019-03-31 15:53 | US ---
INDICATION: Numbness left side of face, question CVA. DUPLEX ULTRASOUND CEREBRAL ARTERIES: Utilizing 2D real-time duplex Doppler spectral analysis and color flow imaging, examination of the cerebral arteries was obtained, including the common carotid arteries, internal carotid arteries, external carotid arteries, vertebral arteries, and the subclavian arteries as well, 03/31/19 - no comparisons. Very minimal intimal thickening is noted with minimal plaques slightly more prominent on the right than the left. Very little peak systolic velocity elevation was noted mostly on the right in the proximal, mid, and distal ICA. There was some elevation also of the right ECA to 220 cm/sec compared with 149 cm/sec on the left. However, the degree of stenosis is felt to be relatively mild - less than 50%. Very minimal calcification in the plaque on the right is noted and cannot entirely exclude a very minimal ulceration on the right in the ICA plaque. The left-sided plaque was somewhat smoother and more minimal. ICA/CCA ratios are 1.4 and 1.3 on the right and left respectively. IMPRESSION: 1. The degree of stenosis is less than 50% in both ICAs, although a greater amount of plaque and possibly minimal ulceration is present on the right. Degree of stenosis also should be slightly greater on the right than left. 2. Antegrade vertebral artery flow was noted. 3. Mild narrowing of the right ECA is suggested. MTDD
[2019-03-31] MEDS: Simvastatin 40 MG Tab PO SCH (20:40)
[2019-04-01] MEDS: Pantoprazole 40 MG Tab.CR PO SCH ×2 (06:01→16:51)
[2019-04-01] MEDS: Acetaminophen 500 MG Tab PO PRN (08:33)
[2019-04-01] MEDS: oxyCODONE 5 MG Tab PO PRN ×2 (09:40→16:51)
[2019-04-01] MEDS: Carvedilol 6.25 MG Tab PO SCH ×2 (09:42→18:36)
[2019-04-01] MEDS: Citalopram 20 MG Tab PO SCH (09:43)
[2019-04-01] MEDS: Formoterol/Mometasone 200-5 MCG 8.8 GM Inhaler IH SCH ×2 (09:43→20:41)
[2019-04-01] MEDS: Ferrous Sulfate 325 MG Tab PO SCH (09:44)
[2019-04-01] MEDS: Potassium Chloride 20 MEQ Tab.ER PO SCH (09:44)
[2019-04-01] MEDS: Furosemide 40 MG Tab PO SCH (09:45)
[2019-04-01] MEDS: Lidocaine 5% 700 MG Patch TRDERM SCH (09:45)
[2019-04-01] MEDS: Hydrochlorothiazide/Losartan 12.5-100 mg Tab PO SCH (09:46)
[2019-04-01] MEDS: Gabapentin 600 MG Tab PO SCH ×3 (09:48→20:39)
[2019-04-01] MEDS: fentaNYL 12 MCG/HR Transdermal Patch TRDERM SCH (18:37)
[2019-04-01] MEDS: Simvastatin 40 MG Tab PO SCH (20:39)
[2019-04-02] MEDS: Pantoprazole 40 MG Tab.CR PO SCH ×2 (05:36→17:36)
[2019-04-02] MEDS: Carvedilol 6.25 MG Tab PO SCH ×2 (08:13→17:39)
[2019-04-02] MEDS: Citalopram 20 MG Tab PO SCH (08:13)
[2019-04-02] MEDS: Furosemide 40 MG Tab PO SCH (08:14)
[2019-04-02] MEDS: Hydrochlorothiazide/Losartan 12.5-100 mg Tab PO SCH (08:14)
[2019-04-02] MEDS: Ferrous Sulfate 325 MG Tab PO SCH (08:14)
[2019-04-02] MEDS: Gabapentin 600 MG Tab PO SCH ×3 (08:17→20:03)
[2019-04-02] MEDS: Formoterol/Mometasone 200-5 MCG 8.8 GM Inhaler IH SCH ×2 (08:21→20:03)
[2019-04-02] MEDS: Lidocaine 5% 700 MG Patch TRDERM SCH (08:23)
[2019-04-02] MEDS: Polyvinyl Alcohol 1.4% Ophth Soln 15 ML Bottle EYEBOTH PRN (08:24)
[2019-04-02] MEDS: Acetaminophen 500 MG Tab PO PRN (08:29)
[2019-04-02] MEDS: traMADol 50 MG Tab PO PRN (09:49)
[2019-04-02] MEDS: Simvastatin 40 MG Tab PO SCH (20:04)
[2019-04-03] MEDS: Pantoprazole 40 MG Tab.CR PO SCH ×2 (05:09→17:19)
[2019-04-03] MEDS: Formoterol/Mometasone 200-5 MCG 8.8 GM Inhaler IH SCH ×2 (08:06→20:37)
[2019-04-03] MEDS: Carvedilol 6.25 MG Tab PO SCH ×2 (08:06→17:19)
[2019-04-03] MEDS: Citalopram 20 MG Tab PO SCH (08:06)
[2019-04-03] MEDS: Furosemide 40 MG Tab PO SCH (08:07)
[2019-04-03] MEDS: Ferrous Sulfate 325 MG Tab PO SCH (08:07)
[2019-04-03] MEDS: Potassium Chloride 20 MEQ Tab.ER PO SCH (08:07)
[2019-04-03] MEDS: Lidocaine 5% 700 MG Patch TRDERM SCH (08:07)
[2019-04-03] MEDS: Hydrochlorothiazide/Losartan 12.5-100 mg Tab PO SCH (08:07)
[2019-04-03] MEDS: Gabapentin 600 MG Tab PO SCH ×3 (08:12→20:38)
[2019-04-03] MEDS: traMADol 50 MG Tab PO PRN ×2 (08:12→20:37)
--- NOTE | 2019-04-03 08:43 | PN ---
DATE SEEN: 04/02/2019 HISTORY: Luz Elena is a 78-year-old woman from [place], who was admitted to swing bed for pain control and rehab for severe low back pain with left radicular pain and leg weakness. She has had significant pain with movement and had been discharged from [facility] in [place] on oral tramadol and oral oxycodone. Two days ago, she was started on a Duragesic patch. She has had improved pain relief on it and has only occasionally taken the oxycodone. She has been up walking in the halls, and once up walking she has improved. She continues to have weakness in the left lower extremity. PHYSICAL EXAMINATION: GENERAL: She is alert and comfortable. VITAL SIGNS: Blood pressure 147/58, pulse 60 and regular, respirations 16, temperature 97.6. SKIN: Shows no rash. HEART: Regular. EXTREMITIES: Show no edema. She has 3/4 strength to left foot dorsiflexion and 3/4 strength to left knee extension. Right side is 4/4 strength. ASSESSMENT: 1. Lumbar radiculopathy secondary to degenerative disk disease and disk bulge impinging the L4 and L5 nerve roots on the left. 2. Hyperlipidemia. 3. Gastroesophageal reflux disease. 4. Asthma. 5. Depression. PLAN: I have discontinued her oxycodone. We will supplement her Duragesic patch with Extra Strength Tylenol p.r.n. and if needed, tramadol p.r.n. Luz Elena has an appointment with Dr. Rodriguez in Neurosurgery on April 08 in [place] to reassess her potential back surgery. She has also been offered a consultation from Dr. Gomez here at [facility], which she is considering. /[id number] RO/MODL
[2019-04-03] MEDS: Acetaminophen 500 MG Tab PO PRN (12:28)
[2019-04-03] MEDS: Simvastatin 40 MG Tab PO SCH (20:38)
[2019-04-04] MEDS: Pantoprazole 40 MG Tab.CR PO SCH ×2 (06:08→17:08)
[2019-04-04] MEDS: traMADol 50 MG Tab PO PRN ×3 (08:08→21:16)
[2019-04-04] MEDS: Carvedilol 6.25 MG Tab PO SCH (08:10)
[2019-04-04] MEDS: Citalopram 20 MG Tab PO SCH (08:10)
[2019-04-04] MEDS: Ferrous Sulfate 325 MG Tab PO SCH (08:11)
[2019-04-04] MEDS: Formoterol/Mometasone 200-5 MCG 8.8 GM Inhaler IH SCH ×2 (08:11→20:46)
[2019-04-04] MEDS: Hydrochlorothiazide/Losartan 12.5-100 mg Tab PO SCH (08:12)
[2019-04-04] MEDS: Furosemide 40 MG Tab PO SCH (08:12)
[2019-04-04] MEDS: Gabapentin 600 MG Tab PO SCH ×3 (08:20→20:54)
[2019-04-04] MEDS: Lidocaine 5% 700 MG Patch TRDERM SCH (08:20)
[2019-04-04] MEDS ORDERED: fentaNYL 50 MCG/HR Transdermal Patch TRDERM SCH (09:00)
--- NOTE | 2019-04-04 11:21 | PN ---
DATE SEEN: 04/04/2019 SUBJECTIVE: Luz Elena Kern is a 78-year-old female admitted to swing bed. Complicated low back pain. Had acute care stay at [facility] in [place], had an epidural steroid injection, known lower lumbar disk disease with spinal stenosis. Doing well. Pain reasonably well controlled, presently on tramadol p.r.n. and Duragesic 25 mcg patch. Pretty good morning, pain with activity. OBJECTIVE: GENERAL: Appears comfortable. NECK: Benign. CHEST: Clear in all lung quiros. HEART: No ectopy or murmur. ABDOMEN: Benign. NEUROLOGIC: Reflexes mute, sensation decreased. ASSESSMENT: 1. Complicated lumbar spinal stenosis. 2. Immune competence, liver transplant. PLAN: We will increase Duragesic from 25 to 50, complementary care and well being. /[id number] ALEXIS/DYLAN
[2019-04-04] MEDS: fentaNYL 25 MCG/HR Transdermal Patch TRDERM SCH (11:52)
[2019-04-04] MEDS: Simvastatin 40 MG Tab PO SCH (20:49)
[2019-04-05] MEDS: Pantoprazole 40 MG Tab.CR PO SCH ×2 (05:50→17:29)
[2019-04-05] MEDS: traMADol 50 MG Tab PO PRN ×2 (08:23→18:32)
[2019-04-05] MEDS: Ferrous Sulfate 325 MG Tab PO SCH (08:25)
[2019-04-05] MEDS: Citalopram 20 MG Tab PO SCH (08:26)
[2019-04-05] MEDS: Furosemide 40 MG Tab PO SCH (08:26)
[2019-04-05] MEDS: Formoterol/Mometasone 200-5 MCG 8.8 GM Inhaler IH SCH ×2 (08:27→20:48)
[2019-04-05] MEDS: Potassium Chloride 20 MEQ Tab.ER PO SCH (08:28)
[2019-04-05] MEDS: Lidocaine 5% 700 MG Patch TRDERM SCH (08:41)
[2019-04-05] MEDS: Gabapentin 600 MG Tab PO SCH ×3 (08:48→20:50)
[2019-04-05] MEDS: Hydrochlorothiazide/Losartan 12.5-100 mg Tab PO SCH (08:49)
--- NOTE | 2019-04-05 11:02 | PN ---
DATE SEEN: 04/05/2019 SUBJECTIVE: Luz Elena Kern is a 78-year-old female in swing bed. Here for rehab. She has a known lumbar disk. Surgical consideration discussed, injection being given, little benefit, persistent complicated left radicular leg pain. Pretty good through the night, worse this morning when she has been up. OBJECTIVE: NEUROLOGIC: Antalgic gait. Paravertebral spasm. Reflexes mute, but symmetric. ASSESSMENT: Lumbar disk disease. PLAN: We increased her patch from 12 to 25 Duragesic patch yesterday, p.r.n. analgesics available. Adjustment of Duragesic patch if indicated. /[id number] ALEXIS/DYLAN
[2019-04-05] MEDS: Carvedilol 6.25 MG Tab PO SCH (17:29)
[2019-04-05] MEDS: Simvastatin 40 MG Tab PO SCH (20:51)
[2019-04-06] MEDS: Pantoprazole 40 MG Tab.CR PO SCH ×2 (05:10→17:29)
[2019-04-06] MEDS: Carvedilol 6.25 MG Tab PO SCH ×2 (09:22→17:28)
[2019-04-06] MEDS: Ferrous Sulfate 325 MG Tab PO SCH (09:22)
[2019-04-06] MEDS: Furosemide 40 MG Tab PO SCH (09:23)
[2019-04-06] MEDS: Hydrochlorothiazide/Losartan 12.5-100 mg Tab PO SCH (09:23)
[2019-04-06] MEDS: Lidocaine 5% 700 MG Patch TRDERM SCH (09:24)
[2019-04-06] MEDS: Formoterol/Mometasone 200-5 MCG 8.8 GM Inhaler IH SCH ×2 (09:25→20:58)
[2019-04-06] MEDS: Citalopram 20 MG Tab PO SCH (09:25)
[2019-04-06] MEDS: Gabapentin 600 MG Tab PO SCH ×3 (09:31→20:58)
--- NOTE | 2019-04-06 10:56 | PN ---
DATE SEEN: 04/06/2019 REASON FOR VISIT: Rehab low back pain, lumbar disk disease. SUBJECTIVE: Luz Elena Kern is a 78-year-old female, admitted to swing bed. Undergoing physical therapy. Pain is reasonable at rest, up and ambulation, particularly left lumbar side. Radiation to the left hip. OBJECTIVE: CHEST: Clear. HEART: Regular. ABDOMEN: Benign. MUSCULOSKELETAL: Tenderness over the lower lumbar spine and left buttocks. ASSESSMENT: Lumbar disk disease. PLAN: PT in place, consultation upcoming, Dr. Rodriguez, 04/08/2019. /[id number] ALEXIS/DYLAN
[2019-04-06] MEDS: traMADol 50 MG Tab PO PRN ×2 (11:23→18:56)
[2019-04-06] MEDS: Simvastatin 40 MG Tab PO SCH (20:59)
[2019-04-07] MEDS: Pantoprazole 40 MG Tab.CR PO SCH ×2 (05:31→17:41)
[2019-04-07] MEDS: Carvedilol 6.25 MG Tab PO SCH ×2 (08:04→17:41)
[2019-04-07] MEDS: Ferrous Sulfate 325 MG Tab PO SCH (08:05)
[2019-04-07] MEDS: Citalopram 20 MG Tab PO SCH (08:05)
[2019-04-07] MEDS: Formoterol/Mometasone 200-5 MCG 8.8 GM Inhaler IH SCH ×2 (08:05→20:26)
[2019-04-07] MEDS: Hydrochlorothiazide/Losartan 12.5-100 mg Tab PO SCH (08:06)
[2019-04-07] MEDS: Potassium Chloride 20 MEQ Tab.ER PO SCH (08:06)
[2019-04-07] MEDS: Furosemide 40 MG Tab PO SCH (08:07)
[2019-04-07] MEDS: Gabapentin 600 MG Tab PO SCH ×3 (08:11→20:27)
[2019-04-07] MEDS: fentaNYL 25 MCG/HR Transdermal Patch TRDERM SCH (08:16)
[2019-04-07] MEDS: Lidocaine 5% 700 MG Patch TRDERM SCH (08:17)
[2019-04-07] MEDS: traMADol 50 MG Tab PO PRN ×2 (09:48→20:30)
--- NOTE | 2019-04-07 12:27 | PN ---
DATE SEEN: 04/07/2019 SUBJECTIVE: Luz Elena Kern is a 78-year-old female seen today for review in swing bed. Complicated lumbar disk disease. Upcoming appointment with Dr. Rodriguez, Neurosurgery, tomorrow. Pain appears to be a little better controlled. Presently on Duragesic patch. Medications reviewed. Timing appropriate. OBJECTIVE: VITAL SIGNS: 135/102, abruptly higher, historically 109/50, 130/53. O2 saturation 94%. Respirations 18. Weight none recent. GENERAL: Appears comfortable. NECK: Benign. CHEST: Clear in all lung quiros. HEART: No ectopy or murmur. ABDOMEN: Benign. ASSESSMENT: Complicated lumbar disk disease, neuropathic left leg pain. PLAN: Pain medications on board, treatment in place, surgical consultation planned. /[id number] ALEXIS/DYLAN
[2019-04-07] MEDS: Simvastatin 40 MG Tab PO SCH (20:28)
[2019-04-08] MEDS: Pantoprazole 40 MG Tab.CR PO SCH (05:44)
[2019-04-08 09:23] VITALS: BP 125/56; PULSE 52
[2019-04-08] MEDS: Carvedilol 6.25 MG Tab PO SCH (09:24)
[2019-04-08] MEDS: Ferrous Sulfate 325 MG Tab PO SCH (09:25)
[2019-04-08] MEDS: Formoterol/Mometasone 200-5 MCG 8.8 GM Inhaler IH SCH (09:25)
[2019-04-08] MEDS: Citalopram 20 MG Tab PO SCH (09:25)
[2019-04-08] MEDS: Hydrochlorothiazide/Losartan 12.5-100 mg Tab PO SCH (09:26)
[2019-04-08] MEDS: Furosemide 40 MG Tab PO SCH (09:26)
[2019-04-08] MEDS: Lidocaine 5% 700 MG Patch TRDERM SCH (09:26)
[2019-04-08] MEDS: Gabapentin 600 MG Tab PO SCH (09:30)
[2019-04-08] MEDS: traMADol 50 MG Tab PO PRN (10:24)
--- NOTE | 2019-04-08 12:30 | DISCH ---
DISCHARGE DATE: 04/08/2019 Discharge medications were clearly defined. She will continue her Duragesic patch 25 mcg, #5 given. Upcoming appointment noted, discontinue Lidoderm patch. /[id number] ALEXIS/DYLAN
--- NOTE | 2019-04-08 13:00 | DISCH ---
DISCHARGE DATE: 04/08/2019 REASON FOR ADMISSION: Complicated lumbar disk disease with neuropathic left lower extremity pain. HISTORY OF PRESENT ILLNESS: Luz Elena Kern is a 78-year-old female, admitted to swing bed. Transferred from [facility]. Multiple health problems including essential hypertension, COPD, hyperlipidemia, anxiety, and depression. She had been at [place] in early March with an upper gastrointestinal bleed. Results of steroid use and naproxen. Complicated back pain. Has known radicular neuropathic lower extremity disease. Corticosteroid injection of little benefit. Dr. Rodriguez, Neurosurgery, [place], upcoming and planned. Please see history and physical. HOSPITAL COURSE: The patient admitted to the hospital for treatment, therapy primary issue. Laboratory studies on admission, revealed normal CBC, though hemoglobin 9.4, hematocrit 27.9, platelets 313,000, and normal indices. Upper GI bleed noted. PHYSICAL EXAMINATION ON DISCHARGE: VITAL SIGNS: 104/71, 36.7, 59 is the pulse. GENERAL: Appears comfortable. Speech is fluent. HEENT: Mouth and oropharynx clear. NECK: Benign. Thyroid small. CHEST: Clear in all lung quiros. No adventitious sounds. Decreased breath sounds both lower lung quiros. HEART: No ectopy or murmur. ABDOMEN: Benign. EXTREMITIES: Sensation is normal in lower extremity. ASSESSMENT: Complicated lumbar disk disease. PLAN: Therapy beneficial, results as appropriate. We will check hemoglobin prior to going home. /[id number] ALEXIS/DYLAN
== END 2019-04-08 10:30 | disposition home or self-care (01) | DRG 552 ==
LOC: FB.MS 14:52
PROVIDERS: ADMIT Family Medicine; ATTEND Family Medicine
DX: M51.16 Intervertebral disc disorders with radiculopathy, lumbar region (principal); Z94.4 Liver transplant status; I10 Essential (primary) hypertension; J44.9 Chronic obstructive pulmonary disease, unspecified; M48.061 Spinal stenosis, lumbar region without neurogenic claudication; E78.5 Hyperlipidemia, unspecified; R29.810 Facial weakness; D89.9 Disorder involving the immune mechanism, unspecified; F41.9 Anxiety disorder, unspecified; F32.9 Major depressive disorder, single episode, unspecified; G58.8 Other specified mononeuropathies; Z90.49 Acquired absence of other specified parts of digestive tract; Z98.42 Cataract extraction status, left eye; Z98.41 Cataract extraction status, right eye; Z79.51 Long term (current) use of inhaled steroids; Z79.899 Other long term (current) drug therapy; Z88.8 Allergy status to other drugs, medicaments and biological substances
CPT/HCPCS: 36415; 80053; 85025; 93880; 97110-GP; 97116-GP; 97161-GP; 97165-GO; 97530-GO; 97530-GP; 97535-GO; A9270-GY

== ENCOUNTER 2024-02-10 18:28 | Emergency (ER) | payer MEDICARE ==
[2024-02-10 18:52] LABS: BASOPHILS PERCENT AUTO 0.5 % (0.2-1.5); EOSINOPHILS ABSOLUTE AUTO 0.1 x10-3/uL (0.0-0.8); EOSINOPHILS PERCENT AUTO 1.7 % (0.6-8.1); HEMATOCRIT 39.7 % (34.2-48.2); HEMOGLOBIN 13.4 g/dL (11.4-15.5); LYMPHOCYTES ABSOLUTE AUTO 1.3 x10-3/uL (1.0-4.4); LYMPHOCYTES PERCENT AUTO 15.7 % (18.4-52.1); MEAN CORPUSCULAR HEMOGLOBIN 28.3 pg (23.9-33.9); MEAN CORPUSCULAR HGB CONC 33.8 g/dL (31.9-34.8); MEAN CORPUSCULAR VOLUME 83.8 fL (76.7-100.5); MEAN PLATELET VOLUME 6.6 fL (7.1-12.4); MONOCYTES ABSOLUTE AUTO 0.8 x10-3/uL (0.3-1.0); NEUTROPHILS ABSOLUTE AUTO 5.8 x10-3/uL (1.5-6.3); NEUTROPHILS PERCENT AUTO 72.1 % (30.8-76.2); PLATELET COUNT,PLT 207 x10(3)uL (151-488); RED BLOOD CELL COUNT 4.73 x10(6)uL (3.60-5.20); RED CELL DISTRIBUTION WIDTH 14.2 % (12.3-16.5)
[2024-02-10 18:55] LABS: BLOOD UREA NITROGEN,BUN 15 mg/dL (7-18); BUN/CREATININE RATIO 16.7 (9-20); CALCIUM 8.6 mg/dL (8.6-10.2); CARBON DIOXIDE,CO2 24 mmol/L (21-32); CHLORIDE,CL 103 mmol/L (100-110); CREATININE 0.9 mg/dL (0.55-1.02); ESTIMATED GFR 63 mL/min (>60); GLUCOSE RANDOM 120 mg/dL (80-116); POTASSIUM,K 3.8 mmol/L (3.5-5.3); SODIUM,NA 137 mmol/L (135-145)
[2024-02-10 18:57] LABS: BILIRUBIN,URINE NEGATIVE (NEGATIVE); GLUCOSE,URINE NORMAL (NORMAL); KETONES,URINE NEGATIVE (NEGATIVE); LEUKOCYTE ESTERASE,URINE NEGATIVE (NEGATIVE); NITRITE,URINE NEGATIVE (NEGATIVE); OCCULT BLOOD,URINE NEGATIVE (NEGATIVE); PROTEIN,URINE NEGATIVE (NEGATIVE); UROBILINOGEN,URINE NORMAL (NEGATIVE)
[2024-02-10 18:58] LABS: APPEARANCE,URINE CLEAR (CLEAR); COLOR,URINE YELLOW (YELLOW)
[2024-02-10 19:01] LABS: ALANINE AMINOTRANSFERASE,ALT 33 U/L (12-36); ALBUMIN 3.3 g/dL (3.2-4.6); ALKALINE PHOSPHATASE 74 IU/L (56-112); ASPARTATE AMNIOTRANSFERASE,AST 22 IU/L (5-25); BILIRUBIN TOTAL 0.3 mg/dL (0.1-1.3); PROTEIN TOTAL,TP 6.7 g/dL (6.0-8.0)
[2024-02-10 21:01] VITALS: BP 145/65; PULSE 68
== END 2024-02-10 20:25 | disposition home or self-care (01) ==
LOC: FB.ED 18:28
DX: R41.0 Disorientation, unspecified (principal); E78.00 Pure hypercholesterolemia, unspecified; I10 Essential (primary) hypertension; J45.909 Unspecified asthma, uncomplicated; Z90.49 Acquired absence of other specified parts of digestive tract; Z79.899 Other long term (current) drug therapy; Z88.5 Allergy status to narcotic agent
CPT/HCPCS: 36415; 70450; 80053; 81003; 85025; 99285